=== PATIENT | male | born 1955 | race Caucasian/White ===

== ENCOUNTER 2020-02-15 15:11 | Emergency (ER) | payer SELFPAY ==
[2020-02-15] MEDS ORDERED: Clopidogrel 75 MG Tab ONE (15:30)
[2020-02-15] MEDS ORDERED: Aspirin 81 MG Tab.Chew ONE (15:30)
[2020-02-15] MEDS ORDERED: Heparin Sodium 5,000 Units/ML Vial ONE (15:30)
[2020-02-15] MEDS ORDERED: Nitroglycerin 0.4 MG Tab.SL ONE (15:30)
--- NOTE | 2020-02-15 15:43 | EDM.PDOC ---
ED HPI GENERAL MEDICAL PROBLEM - General Stated Complaint: STEMI Time Seen by Provider: 02/15/20 15:11 Source of Information: Reports: Patient History Limitations: Reports: No Limitations - History of Present Illness INITIAL COMMENTS - FREE TEXT/NARRATIVE: Pt. presents to ER with complaints of chest discomfort with radiation into L arm. 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 He states that he had some intermittent twinges of pain last evening as well. Denies any shortness of breath. Denies any nausea or vomiting. Pt. states that he "doesn't doctor". He sees a [facility] in [place] when he hodges there. He states that he knows that his cholesterol is elevated and he is not taking any medications for this. He is a non-smoker. He state that his father of CAD when he was 49. Onset: Today Onset Date: 02/15/20 Location: Reports: Chest, Generalized Associated Symptoms: Reports: Diaphoresis ED ROS GENERAL - Review of Systems Review Of Systems: See Below Constitutional: Reports: No Symptoms HEENT: Reports: No Symptoms Respiratory: Reports: No Symptoms Cardiovascular: Reports: Chest Pain Endocrine: Reports: No Symptoms GI/Abdominal: Reports: No Symptoms : Reports: No Symptoms Musculoskeletal: Reports: No Symptoms Skin: Reports: Diaphoresis Neurological: Reports: No Symptoms Psychiatric: Reports: No Symptoms Hematologic/Lymphatic: Reports: No Symptoms Immunologic: Reports: No Symptoms ED EXAM, GENERAL - Physical Exam Exam: See Below Exam Limited By: No Limitations General Appearance: Alert, WD/WN, No Apparent Distress Nose: Normal Inspection, No Blood Throat/Mouth: Normal Lips, Normal Voice, No Airway Compromise Head: Atraumatic, Normocephalic Neck: Normal Inspection, Supple, Non-Tender, Full Range of Motion Respiratory/Chest: No Respiratory Distress, Lungs Clear, Normal Breath Sounds, No Accessory Muscle Use, Chest Non-Tender Cardiovascular: Normal Peripheral Pulses, Regular Rate, Rhythm, No Edema, No Murmur Peripheral Pulses: 4+: Radial (L) GI/Abdominal: Soft, Non-Tender, No Mass (Male) Exam: Deferred Rectal (Males) Exam: Deferred Back Exam: Normal Inspection, Full Range of Motion Extremities: Normal Inspection, Normal Range of Motion, Non-Tender, Normal Capillary Refill Neurological: Alert, Oriented, CN II-XII Intact, Normal Cognition, Normal Gait, Normal Reflexes, No Motor/Sensory Deficits Psychiatric: Normal Affect, Normal Mood Skin Exam: Warm, Dry, Intact, Pallor Lymphatic: No Adenopathy EKG INTERPRETATION Rhythm: NSR [place]: Normal P-Wave: Present QRS: Normal ST-T: Normal QT: Normal EKG Interpretation Comments: STEMI noted in inferior leads Departure - Departure Time of Disposition: 15:45 Disposition: Home, Self-Care 01 Clinical Impression: ST elevation myocardial infarction (STEMI) of inferior wall, initial episode of care - Discharge Information Forms: Interfacility Transfer EMTALA - Problem List Review Problem List Initiated/Reviewed/Updated: Yes - Assessment/Plan Plan: Pt. was noted to have an inferior STEMI noted on the EKG. STEMI protocol was started and code was called. 2 IVs started. Pt. was given aspirin 324mg PO. Pt. was given plavix 600mg PO. She was given heparin 4000u bolus and started on heparin at 1000u/hr drip. Pt. was bradycardic at a rate in the 40s, so no beta kasia was given. He was given nitro 0.4mg SL with caused the pain to completely resolve. Contacted , customer support consultant at [facility] who accepts the patient in transfer. Pt. will be transferred via [facility] ground ambulance. Pt. signed consent and EMTALA form.
[2020-02-15 15:53] LABS: PTT,PARTIAL THROMBOPLSTIN TIME 27.2 SEC (25.6-32.8)
[2020-02-15 15:57] LABS: ANION GAP 13.9 mmol/L (10-20); CHLORIDE,CL 103 mmol/L (98-107); SODIUM,NA 139 mmol/L (136-145)
--- OUTSIDE RECORDS SUMMARY | 2020-02-20 14:33 | XMSREPORT ---
:1955 Author Organization [facility] s Address [address] [place] [address] Care Team Providers Name Role Phone Provider, Hosp Procedure Primary Care Provider Unavailable Reason for Visit Reason Comments Auth/Cert Status Reason Specialty Diagnoses / Procedures Referred By Rowena hubbard Referred To Contact Encounter Details Date Type Department Care Team Description 02/15/2020 - Hospital Encounter [facility] Arashvand, STEMI involving 02/17/2020 CENTER [facility] [place], right coronary [address] artery ([place]) [place] [address] [place] [phone] Allergies Not on Filedocumented as of this encounter (statuses as of 02/17/2020) Medications Medication Sig Dispensed Refills Start Date End Date Status aspirin 81 mg Take 1 tablet 100 tablet 4 02/18/2020 Active chewable (81 mg) by tabletIndications: mouth 1 time Stented coronary per day artery, STEMI involving right coronary artery (HCC) nitroglycerin Dissolve 1 25 tablet 1 02/17/2020 Acti ve (NITROSTAT) 0.4 mg tablet (0.4 1 sublingual mg) under the tabletIndications: tongue Every Stented coronary 5 minutes as artery, STEMI needed for involving right chest pain coronary artery May repeat (HCC) every 5 minutes for a total of 3 doses. atorvaSTATin Take 1 tablet 90 tablet 4 02/18/2020 Ac tive (LIPITOR) 40 mg (40 mg) by 1 tabletIndications: mouth 1 time Stented coronary per day artery, STEMI involving right coronary artery (HCC) lisinopril Take 1 tablet 90 tablet 4 02/18/2020 Acti ve (PRINIVIL, (2.5 mg) by 1 ZESTRIL) 2.5 MG mouth 1 time tabletIndications: per day Stented coronary artery, STEMI involving right coronary artery (HCC) thyroid (ARMOUR Take by mouth 0 02/17/2020 Active THYROID) 60 mg 1 time per tablet (1 grain) day ARMOUR THYROID PO Take by mouth 0 02/16/20 2 Discontinued 1 time per 0 (Data ent ry day error) thyroid 60 mg Take 60 mg by 0 Di scontinued tablet (1 grain) mouth 1 time 0 (carpentry specialist a day in the error) morning clopidogrel Take 8 8 tablet 0 02/17/2020 Discont inued (PLAVIX) 75 mg tablets (600 0 (D uplicate) tabletIndications: mg) by mouth Stented coronary 1 time for 1 artery, STEMI dose involving right coronary artery (HCC) clopidogrel Take 1 tablet 90 tablet 3 02/18/2020 Dis continued (PLAVIX) 75 mg (75 mg) by 0 (Dup licate) tabletIndications: mouth 1 time Stented coronary per day artery, STEMI involving right coronary artery (HCC) documented as of this encounter (statuses as of 02/17/2020) Active Problems Problem Noted Date STEMI involving right coronary artery 02/15/2020 documented as of this encounter (statuses as of 02/17/2020) Social History Tobacco Use Types Packs/Day Years Used Date Never Assessed Sex Assigned at Date Recorded Not on file Job Start Date Occupation Industry Not on file Not on file Not on file Travel History Travel Start Travel End No recent travel history available. documented as of this encounter Last Filed Vital Signs Vital Sign Reading Time Taken Comments Blood Pressure 111/62 02/17/2020 10:47 AM CDT Pulse 52 02/17/2020 10:47 AM CDT Temperature 36.8 C (98.3 F) 02/17/2020 10:47 AM CDT Respiratory Rate 16 02/17/2020 10:47 AM CDT Oxygen Saturation 97% 02/17/2020 10:47 AM CDT Inhaled Oxygen Concentration - - Weight 96.4 kg (212 lb 8.4 oz) 02/15/2020 5:00 PM CDT Height 182.9 cm (6') 02/15/2020 5:00 PM CDT Body Mass Index 28.82 02/15/2020 5:00 PM CDT documented in this encounter Functional Status Functional Status Response Date of Assessment Is the person deaf or does he/she have serious difficulty No 02/15/2020 hearing? Is this person blind or does he/she have difficulty No 02/15/2020 seeing even when wearing glasses? Do you have difficulty with walking, balance, climbing No 02/16/2020 stairs, or had a fall in the last 3 months? Does the patient have difficulty dressing or bathing? No 02/15/2020 Because of a physical, mental, or emotional condition; No 02/15/2020 does this person have difficulty doing errands alone such as visiting a doctor's office or shopping? Cognitive Status Response Date of Assessment Because of a physical, mental, or emotional condition; No 02/15/2020 does this person have serious difficulty concentrating, remembering, or making decisions? documented as of this encounter Discharge Summaries Nani Dodson PA-C - 02/17/2020 11:20 AM CDT Cardiology Discharge Summary Discharging Physician: Dr. Roque Bernstein Admit Date: 02/15/2020 Discharge Date: 02/17/2020 Primary Care Physician: [facility] Procedure Provider Discharge Diagnoses Patient Active Problem List Diagnosis STEMI involving right coronary artery (HCC) Hospital Course Gigi Henderson is a 64yr old male who was admitted for STEMI. He received stents to his PDA, mid LAD and proximal LAD, he denies any recurrent symptoms since then. Echocardiogram shows a preserved EF of 65%. He was started on a low dose beta kasia but unfortunately was unable to tolerate due to bradycardia, his HR only reached 66 with activity and it has been held every dose. He will be discharged on ASA, clopidogrel (PLAVIX), lisinopril (PRINIVIL, ZESTRIL) and atorvastatin calcium (LIPITOR) which are all new for him. He has accident insurance so ticagrelor (BRILINTA) would likely be very expensive, this was changed to clopidogrel (PLAVIX). He should take aloading dose tonight of 600 mg followed by 75 mg/daily starting tomorrow. We will follow up with himas an outpatient in 4-6 weeks. Discussed the importance of continuing DAP; he should continue ASA indefinitely and clopidogrel (PLAVIX) for at least 1 year. Missing of doses could lead to possible stent closure. Patient is agreeablewith continuing medications. We also discussed the importance of routine exercise, heart healthy diet, maintaining adequate BP/blood sugars and limiting/avoiding substances such as alcohol and tobacco. Patient is stable for discharge. Preliminary Discharge Medications This list of medications is preliminary and tentative. Please see the After Visit Summary for the final and accurate medication list. Discharge Medication List START taking these medications START: aspirin 81 mg chewable tablet Dose: 81 mg Take 1 tablet (81 mg) by mouth 1 time per day Start taking on: February 18, 2020 START: atorvaSTATin 40 mg tablet Commonly known as: LIPITOR Dose: 40 mg Take 1 tablet (40 mg) by mouth 1 time per day Start taking on: February 18, 2020 START: * clopidogrel 300 mg tablet Commonly known as: PLAVIX Dose: 600 mg Take 2 tablets (600 mg) by mouth 1 time for 1 dose START: * clopidogrel 75 mg tablet Commonly known as: PLAVIX Dose: 75 mg Take 1 tablet (75 mg) by mouth 1 time per day Start taking on: February 18, 2020 START: lisinopril 2.5 MG tablet Commonly known as: PRINIVIL, ZESTRIL Dose: 2.5 mg Take 1 tablet (2.5 mg) by mouth 1 time per day Start taking on: February 18, 2020 START: nitroglycerin 0.4 mg sublingual tablet Commonly known as: NITROSTAT Dose: 0.4 mg Dissolve 1 tablet (0.4 mg) under the tongue Every 5 minutes as needed for chest pain May repeat every 5 minutes for a total of 3 doses. * This list has 2 medication(s) that are the same as other medications prescribed for you. Read thedirections carefully, and ask your doctor or other care provider to review them with you. CONTINUE taking these medications which have NOT CHANGED CONTINUE: thyroid 60 mg tablet (1 grain) Dose: 60 mg Take 60 mg by mouth 1 time a day in the morning You might also be taking other medications not listed above. If you have questions about any of your other medications, talk to the person who prescribed them or your Primary Care Provider. Where to Get Your Medications These medications were sent to [facility] [address] [place] [id number] Hours: M-F 8am-9pm, Sat-Sun 9am-9pm aspirin 81 mg chewable tablet atorvaSTATin 40 mg tablet clopidogrel 300 mg tablet clopidogrel 75 mg tablet lisinopril 2.5 MG tablet nitroglycerin 0.4 mg sublingual tablet Procedures Performed and Findings 02/15/2020: angiogram, Right posterior descending artery: A successful Drug Eluting Stent was deployed using a RESOLUTE SHRADDHA RX2.79E17IA. Mid left anterior descending: A successful Drug Eluting Stent was deployed using a RESOLUTE SHRADDHA RX3.0X30MM. Proximal left anterior descending: A Drug Eluting Stent was deployed using a RESOLUTE SHRADDHA RX3.0X30MM. Consultations Obtained None Discharge Disposition ADULT Discharge Planning: Home (1, 2) Activity on Discharge No lifting >10 pounds for the next 7 days Discharge Instructions Follow-Up Scheduled PCP In 1-2 weeks Cardiology 4-6 weeks Cardiac rehab ordered documented in this encounter Discharge Instructions Georgia Gilliam RN - 02/17/2020 Discharge Instructions for Cardiac Catheterization Cardiac catheterizationis an invasiveprocedureto evaluate for certain heart problems involvingthe hearts chambers, valves, and blood vessels. A thin, flexible tube (catheter) is put in a bloodvessel in your groin or arm. Once the catheter is advanced into the heart measurements can be taken to assess blood flow, pressure, and oxygen. The healthcare provider can inject contrast fluidinto your blood, which then flows to your heart.X-rays picturescan then be taken of your heart. Often "coronary angiography" is performed as part of a cardiac catheterization which looks for blocked areas in the arteries that send blood to the heart. If a significant blockage is found your doctormay attempt to open up the artery which often involves placing a stent. Your provider will review the results of your procedure with you. Be sure to ask any questions you have before you leave. This sheet will help you take care of yourself at home. Home care Don't drive or make any important decisions for at least 24 hours after getting any type of sedation or anesthesia. Arrange to have a responsible adult drive you home after your procedure. Only do light and easy activities forthe next 2 to 3days. Ask for help with chores and errands while you recover. Have someone drive you to your appointments. Don't lift anything heavyuntil your healthcare team tells you when it's safe to lift again. Ask your healthcare team when you can expect to return to work. Unless your job involves lifting,you may be able to return to your normal activities within a couple of days. Take your medicines as directed. Don't skip doses. Drink 6 to 8glasses of water a day. This is to help flush the contrast dye out of your body. Call your healthcare team if your urine has any change in color. Take your temperature each day for 7 days. If you feel cold and clammy or start sweating, take your temperature right away and call your healthcare team. Check your incisions every day for signs of infection. These include redness, swelling, and drainage. It's normal to have a small bruise or bump where the catheter was inserted. A bruise that's getting larger is not normal and should be reported to your healthcare team. If you see blood forming in the incision, call your healthcare team. Go to the emergency department if you have uncontrolled bleeding from the artery site. This is especially true if you take medicines that make it hard for your blood to clot. Examples are aspirin, clopidogrel, and warfarin. Eat a healthy diet. Make sure it's low in fat, salt, and cholesterol. Ask your healthcare team for diet information. Stop smoking. Enroll in a stop-smoking program or ask your healthcare team for help. Stop-smokingprograms can be life saving. Exercise as your healthcare team tells you to. Your healthcare teammay recommend you start a cardiac rehabilitation program. Cardiac rehab is an exercise program in which trained healthcare staff watch your progress and stress on your heart while you exercise. Ask your team how to enroll. Don't swim or take baths until your healthcare team says its OK. You can shower the day after the procedure. Keep the site clean and dry. This keeps the incision from getting wet and infected until the skin and artery can heal. Be sure to follow all after-care instructions. Follow-up care Make a follow-up appointment as advised by our staff. It's common to have a follow-up appointment2 to 4 weeks after an angioplasty or coronary stent procedure. Make a yearly appointment, too. This isto make sure you are still doing well and not having anynew symptoms. Don't wait for a follow-up appointment if your medicines aren't working or you are having heart-related symptoms. When to seek medical care Call your healthcare provider right away if you have any of the following: Chest pain Constant or increasing pain or numbness in your leg Fever of 100.4 F( 38.0C) or higher, or as directed by your healthcare provider Symptoms of infection. These include redness, swelling, drainage, or warmth at the incision site. Shortness of breath A leg that feels cold or appears blue Bleeding, bruising, or a lot ofswelling where the catheter was inserted Blood in your urine Black or tarry stools Any unusual bleeding [employer] last reviewed this educational content on 04/05/201919997833-7746 [employer]. [address] [place] [address]. All rights reserved. This information is not intended as a substitute for professional medical care. Always follow your healthcare professional's instructions. AttachmentsThe following attachments cannot be sent through Care Everywhere. Eating Heart-Healthy Foods (Bengali)documented in this encounter Medications at Time of Discharge Medication Sig Dispensed Refills Start Date End Date aspirin 81 mg chewable Take 1 tablet (81 100 tablet 4 2019 tabletIndications: mg) by mouth 1 time Stented coronary artery, per day STEMI involving right coronary artery (HCC) nitroglycerin Dissolve 1 tablet 25 tablet 1 02/17/202002/03 (NITROSTAT) 0.4 mg (0.4 mg) under the sublingual tongue Every 5 tabletIndications: minutes as needed Stented coronary artery, for chest pain May STEMI involving right repeat every 5 coronary artery (HCC) minutes for a total of 3 doses. atorvaSTATin (LIPITOR) Take 1 tablet (40 90 tablet 4 201902/22/2021 40 mg tabletIndications: mg) by mouth 1 time Stented coronary artery, per day STEMI involving right coronary artery (HCC) lisinopril (PRINIVIL, Take 1 tablet (2.5 90 tablet 4 201902/22/2021 ZESTRIL) 2.5 MG mg) by mouth 1 time tabletIndications: per day Stented coronary artery, STEMI involving right coronary artery (HCC) clopidogrel (PLAVIX) 75 Take 8 tablets (600 98 tablet 3 mg tablet mg) by mouth 1 time for 1 dose, Then take one tablet by mouth daily thereafter thyroid (ARMOUR THYROID) Take by mouth 1 time 0 0 02/17/2020 60 mg tablet (1 grain) per day documented as of this encounter Progress Notes Mckenna Arana, PHARM D - 02/16/2020 12:54 PM CDT02/16/2020 12:54 PM -- Patient was seen by the pharmacy med reconciliation team and HOME MEDICATIONS h ave been reconciled and updated to match the patient's home usage. Mckenna Arana, PHARM D documented in this encounter Plan of Treatment Date Type Specialty Care Team Description 02/27/2020 Office Visit Family [facility] Griselda Jaime , [employer] [address] [place] [address] [phone] Name Type Priority Associated Diagnoses Date/Ti me EKG [facility] Routine 02/17/2020 8:5 1 AM CDT Name Type Priority Associated Diagnoses Order S chedule EKG [facility] Routine daily (0600) fo r 3 Days starting 02/16/2020 until 0, 2 completed documented as of this encounter Procedures Procedure Name Priority Date/Time Associated Comments Diagnosis TROPONIN I Routine 02/17/2020 7:10 Results for this AM CDT procedure are i n the results section. BASIC METABOLIC PANEL Routine 02/17/2020 7:10 Re sults for this AM CDT procedure are i n the results section. ECHO ADULT COMPLETE Routine 02/16/2020 10:42 Resu lts for this AM CDT procedure are i n the results section. LAB ONLY-COMPLETE Routine 02/16/2020 7:28 Result s for this BLOOD COUNT WITH AM CDT procedure a re in DIFFERENTIAL the results section. LIPID PANEL Routine 02/16/2020 7:28 Results for this AM CDT procedure are i n the results section. TROPONIN I Routine 02/16/2020 7:28 Results for this AM CDT procedure are i n the results section. FERRITIN Routine 02/16/2020 7:28 Results for this AM CDT procedure are i n the results section. HEPATIC FUNCTION Routine 02/16/2020 7:28 Results for this PANEL AM CDT procedure are i n the results section. BASIC METABOLIC PANEL Routine 02/16/2020 7:28 Re sults for this AM CDT procedure are i n the results section. LAB ONLY-COMPLETE Routine 02/16/2020 7:28 Result s for this BLOOD COUNT WITH AM CDT procedure a re in DIFFERENTIAL the results section. EKG Routine 02/16/2020 7:06 Results for this AM CDT procedure are i n the results section. COMPLETE BLOOD COUNT JIM 02/15/2020 6:09 Res ults for this WITHOUT DIFFERENTIAL PM CDT procedu re are in the results section. TROPONIN I JIM 02/15/2020 6:09 Results for this PM CDT procedure are i n the results section. BASIC METABOLIC PANEL JIM 02/15/2020 6:09 Re sults for this PM CDT procedure are i n the results section. ACTIVATED CLOTTING Routine 02/15/2020 5:10 Resul ts for this TIME POCT PM CDT procedure are i n the results section. CARDIAC CATH POSSIBLE Routine 02/15/2020 5:01 Re sults for this ANGIOPLASTY STENT PM CDT procedure are in [employer] the results section. documented in this encounter Results TROPONIN I (02/17/2020 7:10 AM CDT) Pathologist [facility] Troponin I 1.166 (H) 0.000 - 0.028 ng/mL [address] Specimen Blood Performing Organization Address City/State/Zipcode Phone Number [address] [place] [address], [place] [address] BASIC METABOLIC PANEL WITH GFR (02/17/2020 7:10 AM CDT) Pathologist [facility] Glucose 96 70 - 100 mg/dL [place] [address] [facility] BUN 12 6 - 22 mg/dL [address] Creatinine 0.90 0.80 - 1.[address] mg/dL BUN/Creatinine Ratio 13.3 10.0 - 25.[address] Sodium 137 135 - 145 meq/L [address] Potassium 4.1 3.5 - 5.3 meq/L [address] Chloride 104 99 - 110 meq/L [address] CO2 24 20 - 29 meq/L [address] Anion Gap with K 13 6 - 20 meq/L [address] Calcium 9.0 8.5 - 10.5 mg/dL [address] Age [address] eGFR Non- 85 >=[address] Danish mL/min/1.73m2 eGFR >90 >=[address] mL/min/1.73m2 Specimen Blood Performing Organization Address City/State/Zipcode Phone Number [address] [place] [address] ECHO ADULT COMPLETE (02/16/2020 10:42 AM CDT) Specimen Narrative Performed At This result has an attachment that is no t available. [facility] Patient: GIGI HENDERSON MR#: [id number] Exam Date: 02/16/2020 Transthoracic Echocardiogram [facility] [address] [place] [address] BP: 92/57 mmHg HR: 45 bpm : 1955 Exam Location: Bedside Height: 72.00 "(182.9 cm) Age: 64 year(s) Patient Room: [facility] Weight: 212 lbs.(96.16 kg) Gender: Male Patient Status: Inpatient BSA: 2.18 m2 [employer] Glazier: CJ GONZALEZ RDCS, R [place] Reading Physician: Olga Lidia KIRBY Ordering Physician: JASON GARCIA DO Procedure Indication(s): STEMI Examination: TTE Complete 2D(m-mode), Complete Spectral Doppler, Color Doppler Exam Comments The cardiac rhythm is sinus bradycardia Clinical History Most Recent PCI Date: 02/15/2020 Comparison Study Comparison Study: No previous echo was available for c omparison Findings Left Ventricle: Normal left ventricular size. Normal lef t ventricular wall thickness. Normal left ventricular systolic function. The ejection fraction is visually estimated to be 65 %. No evidence of high left ventricular filling pressure. Left Atrium: Normal left atrial size. Aortic Valve: The aortic valve is tricuspid. Mild aort ic cuspal thickening. Aortic sclerosis is present. Normal aortic cuspal mobility. No significant aortic regurgitation. No aortic stenosis. Aorta: The sinus of valsalva is normal in size. The ascending aorta is normal in size measuring 31.0 mm. Mitral Valve: Mild mitral leaflet thickening. Trivial mitral regurgitation. No mitral stenosis. IAS: No gross evidence of shunt flow seen; ho wever the possibility of a PFO cannot be completely ruled out. Right Ventricle: Normal right ventricular size. Normal ri ght ventricular systolic function. Normal right ventricular wall thickness. Pulmonary artery systolic pressure is measured at 23 mmHg. Pulmonary Artery: No significant pulmonary artery hypertension. Pulmonary Vein: Normal pulmonary venous flow. Right Atrium: Normal right atrial size. Tricuspid Valve: Normal tricuspid valve structure. Trivia l tricuspid regurgitation. No significant tricuspid stenosis. Pulmonic Valve: Normal pulmonary valve structure. No sig nificant pulmonary regurgitation. No pulmonary stenosis. IVC: Normal IVC size with normal respirophasic changes. IVC not well visualized. Pericardium: No significant pericardial effusion. The re is pericardial fat. No pleural effusion. Measurements Left Ventricle Aortic Valve Label Value Normal Value Label Value Normal Value LVDd, 2D 48.5 mm LVOT Vmax 99 cm/s LVDs, 2D 31.3 mm AV Vmax 143 cm/s IVSd, 2D 9 mm LVOTd 22 mm LVPWd, 2D 8.2 mm LVOT VTI 25.2 cm FS, 2D 35.46 % LVOT PGmax 4 mmHg LVEDV, 2D 110 ml AV Vmean 99 cm/s LVESV, 2D 39 ml AV VTI 29.7 cm LVEDVI, 2D 50.5 ml/m2 AV PGmax 8 mmHg LVESVI, 2D 17.9 ml/m2 AV PGmean 4 mmHg Stroke Index 44.04 [place] (Vmax) 2.6 cm-sq ml/m-sq AV Vmax, Caliper 143 cm/s Cardiac Output 4.32 L/min [place] (VTI) 3.2 cm-sq Cardiac Index 1.98 Obstruction Index 0.85 L/min/m-sq (V TI) Left Atrium Obstructive Index 0.69 Label Value Normal Value (Vmax) LADs Long. 59 mm Mitral Valve LADs, MM 43 mm Label Value Normal Value LA/AO Ratio, MM 1.26 MV E Vma x 49 cm/s Aorta MV A Vmax 43 cm/s Label Value Normal Value MV E/A 1.14 Ao Asc 31 mm MV E/E' lateral 3.9 Ao Sinus, MM 34 mm MV E/E' septal 5.5 Heart Rate MV Dec Time 183 ms Label Value Normal Value MV E' septal 9.1 cm/s Heart Rate 45 bpm MV E' lateral 12.9 cm/s Tricuspid Valve Label Value Carrie l Value RA Pressure 3 mmHg TR Pmax 20 mmHg RVSP 23 mmHg Pulmonic Valve Label Value Carrie l Value PV Vmax 141 cm/s PV PGmax 8 mmHg Electronically signed by JASON GARCIA DO on 2019 at 02:48 PM Procedure Note [employer] Results No Pull Forward - 02/16/2020 2:50 PM CDT Patient: GIGI HENDERSON MR#: [id number] Exam Date: 02/16/2020 Transthoracic Echocardiogram [facility] [address] [place] [address] BP: 92/57 mmHg HR: 45 bpm : 1955 Exa m Location: Bedside Height: 72.00 "(182.9 cm) Age: 64 year(s) Pat ient Room: [facility] Weight: 212 lbs.(96.16 kg) Gender: Male Pat ient Status: Inpatient BSA: 2.18 m2 [employer] Glazier: CJ GONZALEZ RDCS, RVT Reading Physician: JASON BLEDSOE DO Ordering Physician: JASON BLEDSOE DO Procedure Indication(s): STEMI Examination: TTE Com plete 2D(m-mode), Complete Spectral Doppler, Color Doppler Exam Comments The car diac rhythm is sinus bradycardia Clinical History Most Recent PCI Date: 02/15/2020 Comparison Study Comparison Study: No previous echo was a vailable for comparison Findings Left Ventricle: Normal left ventricular size. Normal lef t ventricular wall thickness. Normal left ventricular systolic function. The ejection fraction is visually estimated to be 65 %. No evidence of high left ventricular filling pressure. Left Atrium: Normal left atrial size. Aortic Valve: The aortic valve is tricuspid. Mild aort ic cuspal thickening. Aortic sclerosis is present. Normal aortic cuspal mobility. No significant aortic regurgitation. No aor tic stenosis. Aorta: The sinus of valsalva is normal in size. The ascending aorta is normal in size measuring 31.0 mm. Mitral Valve: Mild mitral leaflet thickening. Trivial mitral regurgitation. No mitral stenosis. IAS: No gross evidence of shunt flow seen; ho wever the possibility of a PFO cannot be completely ruled out. Right Ventricle: Normal right ventricular size. Normal ri ght ventricular systolic function. Normal right ventricular wall thickness. Pulmonary artery systolic pressure is measured at 23 mmHg. Pulmonary Artery: No significant pulmonary artery hyperten carol. Pulmonary Vein: Normal pulmonary venous flow. Right Atrium: Normal right atrial size. Tricuspid Valve: Normal tricuspid valve structure. Trivia l tricuspid regurgitation. No significant tricuspid stenosis. Pulmonic Valve: Normal pulmonary valve structure. No sig nificant pulmonary regurgitation. No pulmonary stenosis. IVC: Normal IVC size with normal respirophasi c changes. IVC not well visualized. Pericardium: No significant pericardial effusion. The re is pericardial fat. No pleural effusion. Measurements Left Ventricle Aortic Valve Label Value Norm al Value Label Value Normal Value LVDd, 2D 48.5 mm LVOT Vmax 99 cm/s LVDs, 2D 31.3 mm AV Vmax 143 cm/s IVSd, 2D 9 mm LVOTd 22 mm LVPWd, 2D 8.2 mm LVOT VTI 25.2 cm FS, 2D 35.46 % LVOT PGmax 4 mmHg LVEDV, 2D 110 ml AV Vmean 99 cm/s LVESV, 2D 39 ml AV VTI 29.7 cm LVEDVI, 2D 50.5 ml/m2 AV PGmax 8 mmHg LVESVI, 2D 17.9 ml/m2 AV PGmean 4 mmHg Stroke Index 44.04 [place] (Vmax) 2.6 cm-sq ml/m-sq AV Vmax, Caliper 143 cm/s Cardiac Output 4.32 L/min [place] (VTI) 3.2 cm-sq Cardiac Index 1.98 Obstruction Index 0.85 L/min/m-sq (V TI) Left Atrium Obstructive Index 0.69 Label Value Norm al Value (Vmax) LADs Long. 59 mm Mitral Valve LADs, MM 43 mm Label Value Normal Value LA/AO Ratio, MM 1.26 MV E Vmax 49 cm/s Aorta MV A Vmax 43 cm/s Label Value Norm al Value MV E/A 1.14 Ao Asc 31 mm MV E/E' lateral 3.9 Ao Sinus, MM 34 mm MV E/E' septal 5.5 Heart Rate MV Dec Time 183 ms Label Value Norm al Value MV E' septal 9.1 cm/s Heart Rate 45 bpm MV E' lateral 12.9 cm/s Tricuspid Valve Label Value Norm al Value RA Pressure 3 mmHg TR Pmax 20 mmHg RVSP 23 mmHg Pulmonic Valve Label Value Norm al Value PV Vmax 141 cm/s PV PGmax 8 mmHg Performing Organization Address City/[facility]/Zipcode Phone Number [facility] F, [place] FERRITIN (02/16/2020 7:28 AM CDT) Pathologist [facility] Ferritin 1,217 (H) 21 - 275 ng/mL [facility] Specimen Blood Performing Organization Address City/[facility]/Zipcode Phone Number [facility] [address], [place] [phone] TROPONIN I (02/16/2020 7:28 AM CDT) Pathologist [facility] Troponin I 2.311 (H) 0.000 - 0.028 ng/mL [address] Specimen Blood Performing Organization Address [facility] Phone Number [address] [place] [phone] LAB ONLY-COMPLETE BLOOD COUNT WITH DIFFERENTIAL (02/16/2020 7:28 AM CDT) Pathologist Sig nature WBC 7.0 4.0 - 11.0 K/uL [address] RBC 4.88 4.40 - 5.80 M/uL [address] Hemoglobin 14.3 13.5 - 17.5 g/dL [address] Hematocrit 42.7 40.0 - 50.0 % [address] MCV 87.5 80.0 - 98.[address] MCH 29.3 25.5 - 34.[address] MCHC 33.5 31.5 - 36.5 g/dL [address] RDW-CV 13.0 11.5 - 15.5 % [address] RDW-SD 41.4 35.5 - 50.[address] Platelet Count 151 140 - 400 K/uL [address] MPV 10.3 8.5 - 12.[address] Seg Neut Absolute 4.7 1.8 - 8.0 K/uL [place] [address] [facility] Lymphocytes Absolute 1.6 0.8 - 4.1 K/uL [place] [address] [facility] Monocytes Absolute 0.5 0.0 - 1.0 K/uL [place] [address] [facility] Eosinophils Absolute 0.1 0.0 - 0.7 K/uL [place] [address] [facility] Basophil Absolute 0.0 0.0 - 0.2 K/uL [address] Immature Granulocyte 0.02 0.00 - 0.06 K/uL [place] [address] [facility] MARGARITA Absolute Neutrophils Abs. (Segs 4,700 /uL [place] [address] [facility] and Bands) Neutrophils Percent 67.5 % [address] Lymphocytes Percent 23.0 % [address] Monocytes Percent 7.7 % [address] Immature Granulocyte 0.3 % [address] Percent Eosinophils Percent 1.1 % [address] Basophil Percent 0.4 % [address] Nucleated RBC 0 /[address] Specimen Blood Performing Organization Address [facility] Phone Number [address] [place] [phone] LIPID PANEL (02/16/2020 7:28 AM CDT) Pathologist [facility] Cholesterol 159 100 - 200 mg/dL [facility] Triglyceride 219 (H) 50 - 150 mg/dL [facility] HDL 31 (L) 40 - 80 mg/dL [facility] LDL 84 0 - 129 mg/dL [facility] Specimen Blood Performing Organization Address [facility] Phone Number [facility] [address] [place] [address] HEPATIC FUNCTION PANEL (02/16/2020 7:28 AM CDT) Pathologist [facility] nature Alkaline Phosphatase 40 30 - 150 U/L [address] AST - SGOT 37 (H) 0 - 35 U/L [address] ALT - SGPT 53 0 - 55 U/L [address] Bilirubin Total 1.6 (H) 0.2 - 1.2 mg/dL [address] Bilirubin Indirect 1.1 (H) 0.0 - 0.8 mg/dL [address] Bilirubin Direct 0.5 (H) 0.0 - 0.4 mg/dL [address] Albumin 4.0 3.5 - 5.0 g/dL [address] Protein Total 6.2 6.0 - 8.2 g/dL [address] Specimen Blood Performing Organization Address [facility] Phone Number [place] [address] [facility] [address] [place] [phone] BASIC METABOLIC PANEL (02/16/2020 7:28 AM CDT) [facility] Glucose 95 70 - 100 mg/dL [address] BUN 13 6 - 22 mg/dL [address] Creatinine 0.90 0.80 - 1.[address] mg/dL BUN/Creatinine Ratio 14.4 10.0 - 25.[address] Sodium 137 135 - 145 meq/L [address] Potassium 4.2 3.5 - 5.3 meq/L [address] Chloride 107 99 - 110 meq/L [address] CO2 22 20 - 29 meq/L [address] Anion Gap with K 12 6 - 20 meq/L [address] Calcium 8.8 8.5 - 10.5 mg/dL [address] Age [address] eGFR Non- 85 >=[address] Danish mL/min/1.73m2 eGFR >90 >=[address] mL/min/1.73m2 Specimen Blood Performing Organization Address [facility] Phone Number [address] [place] [phone] EKG (02/16/2020 7:06 AM CDT) Pathologist Sig nature EKG WAVEFORM TRACEKannaLife SciencesSTER RAHUL HEALY Sinus bradycardia Otherwise normal ECG When compared with ECG of 15-JUL-1989 11:47, T wave inversion no longer evident in Inferior leads Ventricular Rate: 45 BPM Atrial Rate: 45 BPM P-R Interval: 158 ms QRS Duration: 98 ms Q-T Interval: 432 ms QTc Calculation(Bazett): 373 ms Calculated P [place]: 32 degrees Calculated R [place]: 31 degrees Calculated T [place]: 34 degrees Specimen Narrative Performed At This result has an attachment that is no t available. Performing Organization Address [facility] Phone Number TRACEKannaLife SciencesSTER [facility] BASIC METABOLIC PANEL (02/15/2020 6:09 PM CDT) Pathologist [facility] Glucose 90 70 - 100 mg/dL [address] BUN 18 6 - 22 mg/dL [address] Creatinine 1.07 0.80 - 1.[address] mg/dL BUN/Creatinine Ratio 16.8 10.0 - 25.[address] Sodium 140 135 - 145 meq/L [address] Potassium 4.1 3.5 - 5.3 meq/L [address] Chloride 107 99 - 110 meq/L [address] CO2 19 (L) 20 - 29 meq/L [address] Anion Gap with K 18 6 - 20 meq/L [address] Calcium 9.2 8.5 - 10.5 mg/dL [address] Age [address] eGFR Non- 69 >=[address] Danish mL/min/1.73m2 eGFR 84 >=[address] mL/min/1.73m2 Specimen Blood Performing Organization Address City/State/Zipcode Phone Number [address] [place] [phone] COMPLETE BLOOD COUNT WITHOUT DIFFERENTIAL (02/15/2020 6:09 PM CDT) Pathologist [facility] WBC 9.3 4.0 - 11.0 K/uL [address] RBC 4.97 4.40 - 5.80 M/uL [address] Hemoglobin 14.8 13.5 - 17.5 g/dL [address] Hematocrit 44.1 40.0 - 50.0 % [address] MCV 88.7 80.0 - 98.[address] MCH 29.8 25.5 - 34.[address] MCHC 33.6 31.5 - 36.5 g/dL [address] RDW-CV 13.0 11.5 - 15.5 % [address] RDW-SD 42.5 35.5 - 50.[address] Platelet Count 155 140 - 400 K/uL [address] MPV 10.7 8.5 - 12.0 fL [facility] Specimen Blood Performing Organization Address [facility] Phone Number [place] [address] [facility] [address], [place] [address] TROPONIN I (02/15/2020 6:09 PM CDT) Pathologist Sig nature Troponin I 0.498 (H) 0.000 - 0.028 ng/mL [place] [address] [facility] Specimen Blood Performing Organization Address [facility] Phone Number [place] [address] [facility] [address] [place] [address] ACTIVATED CLOTTING TIME POCT (02/15/2020 5:10 PM CDT) Pathologist Sig nature Activated Clotting 246 (H) 100 - 150 Secs [facility] POINT OF CARE TESTING Specimen Blood Narrative Performed At DEVICE: [id number] [facility] POINT OF CARE TESTING Performing Organization Address [facility] Phone Number [facility] POINT OF [address] [address] CARE TESTING Cardiac Cath Possible Angioplasty Stent Rib Bender - Left; With grafts? Unknown (02/15/2020 5:01 PM CDT) Specimen Narrative Performed At This result has an attachment that is no t available. [facility] Patient: GIGI HENDERSON [facility] Exam Date: 02/15/[address] Exam Time: 05:01 PM-05:15 [place] [address] Department of Interventional Cardiology Diagnostic Left Heart Catheterization Report, Cardiac Interventional Report : 1955 Fluoro Time: 7.4 min. Patient Status: Inpatient Age: 64 year(s) Cath Status: Patient Room: [facility] Gender: Male Diagnostic Rural Electrification Engineer: Olga Lidia KIRBY Groundwater Consultant: JASON GARCIA DO Indication: Angina/CA: myocardial infarction with ST elevation (STEMI). Interventional Conclusions: Interventional Summary Right posterior descending artery: A suc cessful Drug Eluting Stent was deployed using a RESOLUTE SHRADDHA RX2.69B52ZM. Mid left anterior descendin g: A successful Drug Eluting Stent was deployed using a RESOLUTE SHRADDHA RX3.0X30MM. Proximal left anterior descending: A Drug Eluting Stent was deployed using a RESOLUTE SHRADDHA RX3.0X30MM. Procedures Performed: Medication/Infusion/Drip. Art Access - R radial artery. Left Heart Cath With Ventriculogram. Selective Lt Coronary Angiography. Selective Rt Coronary Angio graphy. Drug Eluting Stent Placement. Activated Clotting Time. Additional Drug Eluting Stent Placement. Radial Artery C ompression Device. Fluoro 0.1-60 Minutes. Diagnostic Findings: Coronary Angiography The coronary circulation is right dominant. Left Main Left main artery: The segment is large. Angiography sh ows no disease. Left Anterior Descending Left anterior descending artery: The seg ment is large. Proximal left anterior descending: There is a 70 % stenosis. Mid left anterior descending: There is a 90 % gricelda nosis. First diagonal: The segment is large. Angiography shows no disease. Circumflex Circumflex artery: The segment is large. Angiography shows mild atherosclerosis. First obtuse marginal: The segment is large. Angiography shows mild atherosclerosis. Right Coronary Right coronary artery: The segment is la rge. Angiography shows mild atherosclerosis. Proximal right coronary artery: There is a 30 % stenosis. Right posterio r descending artery: The segment is large. There is a 90 % stenosis. Left Heart Cath Left ventricular function was assessed. Ejection fraction was calculated by a hand injection LV Gram with a value of 60%. Valves Aortic Valve: There is no aortic valve stenosis. Mitral Valve: The mitral valve exhibits no regurgitati on. Interventional Findings: PCI Procedure Data: The syntax score is intermediate. Interventional Details Right posterior descending artery: The i nitial stenosis was 90 %. This was an ACC/AHA Non-High/Non C lesion for intervention. Guidewire crossing was successful. A successful Drug Eluting Stent was depl oyed using a CATH GUIDE 5FR LAUNCHER [id number] during setup, a LUGE 0.014 182CM MODERATE SUPPORT during setup, and a RESOLUTE SHRADDHA RX2.30K29PR During Procedure. The total number of attempt(s) was 1. Th e maximum inflation pressure was 14(britt). There was ADILIA Flow 3 before the procedu re and ADILIA Flow 3 following the procedure. Mid left anterior descending: The initia l stenosis was 90 %. This was an ACC/AHA Non-High/Non C lesion for intervention. Guidewire crossing was successful. A successful Drug Eluting Stent was depl oyed using a CATH GUIDE 5FR LAUNCHER [id number] during setup, a LUGE 0.014 182CM MODERATE SUPPORT during setup, and a RESOLUTE SHRADDHA RX3.0X30MM During Procedure. The total number of attempt(s) was 1. Th e maximum inflation pressure was 14(britt). Following intervention there is a 0 % re sidual stenosis. There was ADILIA Flow 3 before the procedure and ADILIA Flow 3 following the procedure. Proximal left anterior descending: The i nitial stenosis was 70 %. This was an ACC/AHA High/C lesion for intervention. Guidewire crossing was successful. A Drug Eluting Stent was deployed using a CATH GUIDE 5FR LAUNCHER [id number] during setup, a LUGE 0.014 182CM MODERATE SUPPORT during setup, and a RESOLUTE SHRADDHA RX3.0X30MM During Procedure. The total number of attempt(s) was 1. Th e maximum inflation pressure was 16(britt). Following intervention there is a 0 % re sidual stenosis. There was ADILIA Flow 3 before the procedure and ADILIA Flow 3 following the procedure. Procedure Narrative: Access Right radial artery: The puncture site was infiltrated with 2 .0 ml of 1% Lidocaine. Vascular access was obtained using modified seldinger technique and a GLIDESHEATH SL APOORVA 6FR [id number] was advanced into the vessel. Hemostasis/Sheath Status: Hemostasis was successful using mechanical compression (RADIAL TR BAND). Coronary Angiography Left Coronary System: A catheter was positioned into the Vesse l Ostium under fluoroscopic guidance. Contrast injections were performed using hand injection. Angiograms were obtain ed in multiple views. Right Coronary System: A catheter was positioned into the Vesse l Ostium under fluoroscopic guidance. Contrast injections were performed using hand injection. Angiograms were obtain ed in multiple views. Left Heart Cath Ventriculography was performed using 30 cc of contrast at 15 cc/sec and 600 psi. Hemodynamic Impressions General Impressions: Hemodynamic assessm ent demonstrates No systemic hypertension, Left ventricular end diastolic pressure is normal. Hemodynamic Findings Pressures: Baseline: LV pressure 134mm Hg, EDP 16. Baseline: AO pressure 126/68mmHg, mean 92. Hemodynamic Pressures-Phase: Baseline Location : LV Pressure s : 134 mmHg Pressure ed : 16 mmHg HR : 65 bpm Hemodynamic Pressures-Phase: Baseline Location : Ao Pressure s : 126 mmHg Pressure d : 68 mmHg Pressure m : 92 mmHg HR : 63 bpm Acute complication: No complications Contrast: Description Dose Unit HIS No. Reference No. Serial No. Lot No. Omnipaque [id number] 0 ml C34 C34 Ordering Physician: DAHIANA BERNSTEIN DO Scrub: JUANY AYALA CVT CCL Allergy Physician: NIGEL MENDOZA RN CCL Allergy Physician: RICCARDO MG RN Monitor: DONN SEO Welding Rod Coater: LISBETH KINGSTON, RT(R) Welding Rod Coater: NELDA CLARK RT(R) Primary Rural Electrification Engineer: DAHIANA BERNSTEIN DO Diagnostic Physician Signature: Electronically signed by JASON GARCIA DO on 2019 at 04:33 PM Interventional Physician Signature: Electronically signed by JASON GARCIA DO on 2019 at 04:33 PM Measurements: Name Value EF: 60 % Wall Motion: Pre - Pre - Pre - Post - Post - Post - Procedure Note Interface, Inc Results No Pull Forward - 02/16/2020 4:36 PM CDT Patient: GIGI HENDERSON [facility] Exam Date: 02/15/[address] Exam T tesfaye: 05:01 PM-05:15 [place] [address] [facility] Region of Interventional Cardiology Diagnostic Left Heart Catheterization Kitty martinez Cardiac Interventional Report : 1955 Fluoro Time: 7.4 min. Patient Status: Inpatient Age: 64 year(s) Cath Status: Patient Room: [facility] Gender: Male Diagnostic Rural Electrification Engineer: JASON GARCIA DO Groundwater Consultant: JASON GARCIA DO Indication: Angina/CA: myocardial infar ction with ST elevation (STEMI). Interventional Conclusions: Interventional Summary Right posterior descending artery: A suc cessful Drug Eluting Stent was deployed using a RESOLUTE SHRADDHA RX2.37G02LE. Mid left anterior descendin g: A successful Drug Eluting Stent was deployed using a RESOLUTE SHRADDHA RX3.0X30MM. Proximal left anterior descending: A Drug Eluting Stent was deployed using a RESOLUTE SHRADDHA RX3.0X30MM. Procedures Performed: Medication/Infusion/Drip. Art Access - R radial artery. Left Heart Cath With Ventriculogram. Selective Lt Coronary Angiography. Selective Rt Coronary Angio graphy. Drug Eluting Stent Placement. Activated Clotting Time. Additional Drug Eluting Stent Placement. Radial Artery C ompression Device. Fluoro 0.1-60 Minutes. Diagnostic Findings: Coronary Angiography The coronary circulation is right domina nt. Left Main Left main artery: The segment is large. Angiography shows no disease. Left Anterior Descending Left anterior descending artery: The seg ment is large. Proximal left anterior descending: There is a 70 % stenosis. Mid left anterior descending: There is a 90 % gricelda nosis. First diagonal: The segment is large. Angiography shows no disease. Circumflex Circumflex artery: The segment is large. Angiography shows mild atherosclerosis. First obtuse marginal: The segment is large. Angiography shows mild atheroscle rosis. Right Coronary Right coronary artery: The segment is la rge. Angiography shows mild atherosclerosis. Proximal right coronary artery: There is a 30 % stenosis. Right posterio r descending artery: The segment is large. There is a 90 % stenosis. Left Heart Cath Left ventricular function was assessed. Ejection fraction was calculated by a hand injection LV Gram with a value of 60%. Valves Aortic Valve: There is no aortic valve s tenosis. Mitral Valve: The mitral valve exhibits no regurgitation. Interventional Findings: PCI Procedure Data: The syntax score is intermediate. Interventional Details Right posterior descending artery: The i nitial stenosis was 90 %. This was an ACC/AHA Non-High/Non C lesion for intervention. Guidewire crossing was suc cessful. A successful Drug Eluting Stent was depl oyed using a CATH GUIDE 5FR LAUNCHER [id number] during setup, a LUGE 0.014 182CM MODERATE SUPPORT during setup, and a RESOLUTE SHRADDHA RX2.17O81FU During Procedure. The total number of attempt(s) was 1. Th e maximum inflation pressure was 14(britt). There was ADILIA Flow 3 before the procedu re and ADILIA Flow 3 following the procedure. Mid left anterior descending: The initia l stenosis was 90 %. This was an ACC/AHA Non-High/Non C lesion for intervention. Guidewire crossing was successful. A successful Drug Eluting Stent was depl oyed using a CATH GUIDE 5FR LAUNCHER [id number] during setup, a LUGE 0.014 182CM MODERATE SUPPORT during setup, and a RESOLUTE SHRADDHA RX3.0X30MM During Procedure. The total number of attempt(s) was 1. Th e maximum inflation pressure was 14(britt). Following intervention there is a 0 % re sidual stenosis. There was ADILIA Flow 3 before the procedure and ADILIA Flow 3 following the procedure. Proximal left anterior descending: The i nitial stenosis was 70 %. This was an ACC/AHA High/C lesion for intervention. Guidewire crossing was successful. A Drug Eluting Stent was deployed using a CATH GUIDE 5FR LAUNCHER [id number] during setup, a LUGE 0.014 182CM MODERATE SUPPORT during setup, and a RESOLUTE SHRADDHA RX3.0X30MM During Procedure. The total number of attempt(s) was 1. Th e maximum inflation pressure was 16(britt). Following intervention there is a 0 % re sidual stenosis. There was ADILIA Flow 3 before the procedure and ADILIA Flow 3 following the procedure. Procedure Narrative: Access Right radial artery: The puncture site was infiltrated with 2 .0 ml of 1% Lidocaine. Vascular access was obtained using modified seldinger technique and a GLIDESHEATH SL APOORVA 6FR [id number] was advanced into the vessel. Hemostasis/Sheath Status: Hemostasis was successful using mechanical compression (RADIAL TR BAND). Coronary Angiography Left Coronary System: A catheter was positioned into the Vesse l Ostium under fluoroscopic guidance. Contrast injections were performed using hand injection. Angiogra ms were obtained in multiple views. Right Coronary System: A catheter was positioned into the Vesse l Ostium under fluoroscopic guidance. Contrast injections were performed using hand injection. Angiogra ms were obtained in multiple views. Left Heart Cath Ventriculography was performed using 30 cc of contrast at 15 cc/sec and 600 psi. Hemodynamic Impressions General Impressions: Hemodynamic assessm ent demonstrates No systemic hypertension, Left ventricular end diastolic pressure is normal. Hemodynamic Findings Pressures: Baseline: LV pressure 134mmH g, EDP 16. Baseline: AO pressure 126/68mmHg, mean 92. Hemodynamic Pressures-Phase: Baseline Location : LV Pressure s : 134 mmHg Pressure ed : 16 mmHg HR : 65 bpm Hemodynamic Pressures-Phase: Baseline Location : Ao Pressure s : 126 mmHg Pressure d : 68 mmHg Pressure m : 92 mmHg HR : 63 bpm Acute complication: No complicatio ns Contrast: Description Dose Unit HIS No. Reference No. Serial No. Lot No. Omnipaque 125.000 ml C34 C34 Ordering Physician: DAHIANA ARCHIBALD DO Scrub: CHARLIE BROOKS CCL Allergy Physician: NIGEL CAMERON RN CCL Allergy Physician: RICCARDO Dai RN Monitor: DONN SEO Welding Rod Coater: LISBETH MONTGOMERY, RT(R) Welding Rod Coater: NELDA MARTIN, RT(R) Primary Rural Electrification Engineer: DAHIANA ARCHIBALD DO Diagnostic Physician Signature: Interventional Physician Signature: Measurements: Name Value EF: 60 % Wall Motion: Pre - Pre - Pre - Post - Post - Post - Performing Organization Address City/State/Zipcode Phone Number [facility] [place], [place] documented in this encounter Visit Diagnoses Diagnosis Stented coronary artery - Primary Postsurgical percutaneous transluminal c oronary angioplasty status STEMI involving right coronary artery (H CC) documented in this encounter Discharge Diagnoses Not on filedocumented in this encounter Administered Medications Medication Order MAR Action Action Date Dose Rate Site acetaminophen (TYLENOL) tablet 650 mg 650 mg, Oral, Every four hours prn, Starting Thu at 1747, Until Discontinued, mild pain, Post-Procedure (Cath), Pain S elbert 1 - 3, acetaminophen (TYLENOL) tablet 650 mg 650 mg, Oral, Every four hours prn, Starting Thu at 1730, Until Discontinued, mild pain, fever, pain sca le 3 or less, Adult patients: Total dose of acetaminophen from all acetaminophen con taining products should not exceed 4 grams (4000 mg) per day. Pediatric Patients 0 - 3 months: Maximum of 60 mg/kg/24 hours of acetaminophen. Pediatric Patients old er than 3 months: Maximum of 75 mg/kg/24 hours of acetaminophen (Never exceeding 4 grams/day). , aluminum & magnesium hydroxide-simethico ne (MYLANTA,MAALOX) oral suspension 30 mL 30 mL, Oral, Four times a day prn, Starting Thu 0 at 1733, Until Discontinued, indigestion, other (Specify), gas, 30 mL aspirin chewable tablet 81 mg Given 02/17/2020 9:08 AM CDT 81 mg 81 mg, Oral, Daily, First dose on Michelle 02/16/20 at 0900, Until Discontinued, Post-Procedure (Cath) Given 02/16/2020 8:43 AM CDT 81 mg atorvaSTATin (LIPITOR) tablet 40 mg Given 02/17/2020 9:08 AM CDT 40 mg 40 mg, Oral, Daily, First dose on Michelle 02/16/20 at 0900, Until Discontinued Given 02/16/2020 8:43 AM CDT 40 mg clopidogrel (PLAVIX) tablet 600 mg 600 mg, Oral, One time, 1 dose, 02/17/20 at 1800 clopidogrel (PLAVIX) tablet 75 mg 75 mg, Oral, Daily, First dose on Thu02/18/20 at 0900, Until Discontinued haloperidol lactate (HALDOL) injection s olution 2.5 mg 2.5 mg, IV, Every six hours prn, Startin g Thu02/15/20 at 1730, Until Discontinued, other (Specify), nausea/vomiting, 0.5 mL, Use SECOND f or nausea/vomiting. If ineffective and ondansetron used, call physician for a lternative Do not further dilute with 0.9% sodium chloride. If preference is to further dilute for IV administration: first draw up patient-specific dose, t hen dilute to 10ml with dextrose 5% water. Ok to flush with 0.9% Sodium Chlor kacey., hydrALAZINE (APRESOLINE) injection solut ion 10 mg 10 mg, IV, Every six hours prn, Starting Thu02/15/20 at 1727, Until Discontinued, specified parameter, to keep SBP less th an 150 mmHg, 0.5 mL, Repeat in 20 minutes if needed. If not successful after two d oses, contact the interventional cardiology team., lisinopril (PRINIVIL, ZESTRIL) tablet 2. 5 mg Given 02/17/2020 9:08 AM CDT 2.5 mg 2.5 mg, Oral, Daily, First dose on Michelle 02/16/20 at 0900, Until Discontinued Given 02/16/2020 8:43 AM CDT 2.5 mg LORazepam (ATIVAN) 2 mg/mL injection margo ution 0.5 mg 0.5 mg, IV, Every six hours prn, Startin g 02/14/20 at 1733, Until Discontinued, anxiety, 0.25 mL, If preference is to fu rther dilute for IV administration: First draw up patient-specific dose, then dilute with EQUAL VOLUME of 0.9% sodium chloride, nitroglycerin (NITROSTAT) sublingual tab let 0.4 mg 0.4 mg, Sublingual, Every five minutes prn, Starting W ed 02/15/20 at 1727, Until Discontinued, chest pain, At onset of ch est pain, dissolve one tablet under tongue. May repeat every 5 minutes for 3 doses. Do not crush o r chew., ondansetron (ZOFRAN) injection solution 4 mg 4 mg, IV, Every four hours prn, Starting 02/15/20 at 1730, Until Discontinued, nausea, vomiting, 2 mL, Use FIRST. If in effective after 15 minutes use haloperidol if ordered for nausea/vomiting If preference is to fur ther dilute for IV administration: First draw up patient-sp ecific dose, then dilute to 10 mL with 0.9% sodium chloride., senna-docusate sodium (SENOKOT-S;PERICOL LUIS) tablet 1 tablet 1 tablet, Oral, Two times a day prn, Starting Wed 02/14 at 1733, Until Discontinued, constipation, Use FIRST fo r constipation unless patient cannot take oral medications, sodium chloride 0.9% flush (adult) 10 mL Given 02/17/2020 9:09 AM CDT 10 mL 10 mL, IV, Two times a day and prn, First dose on 02/15/20 at 2100, Until Discontinued, 10 mL, Flush IV line as scheduled and as often as necessary before and after meds., Given 02/16/2020 9:40 PM CDT 10 mL Given 02/15/2020 9:52 PM CDT 10 mL temazepam (RESTORIL) capsule 15 mg 15 mg, Oral, Bedtime prn, Starting 02/15/20 at 1733 , Until Discontinued, insomnia thyroid tablet 60 mg Given 02/17/2020 9:09 AM CDT 60 mg 60 mg, Oral, DAILY, First dose on Michelle 02/16/20 at 1215, Until Discontinued Given 02/16/2020 3:10 PM CDT 60 mg Medication Order MAR Action Action Date Dose Rate Site fentaNYL 100 mcg/2 mL Given 02/15/2020 4:54 PM CDT 25 mcg preservative free injection solution 12.5-300 mcg 12.5-300 mcg, IV, Administer in Cardiac Rib Bender, 1 dose, Thu02/15/20 at 1650, 6 mL, Under the direction of the provider in CCL. Do not give on the floor. For cardiac catheterization sedation under direction provider privileged to perform sedation., iohexol (OMNIPAQUE) 350 mg/mL solution 125 Given 02/15/2020 5:22 PM CDT 125 mL mL 125 mL, Intra-arterial, One time, 1 dose, Thu02/15/20 at 1725, 150 mL lidocaine PF (XYLOCAINE-MPF) 1 % preservative Given 4:55 PM CDT 2 mL free injection solution 0-40 mL 0-40 mL, Subcutaneous, Administer in Cardiac Rib Bender, 1 dose, Thu02/15/20 at 1650, 40 mL, Given by provider in CCL. Do not give on the floor., midazolam (VERSED) injection solution 0.5-10 Given 0 4:54 PM CDT 1 mg mg 0.5-10 mg, IV, Administer in Cardiac Rib Bender, 1 dose, Thu02/15/20 at 1650, 10 mL, For cardiac catheterization sedation under direction provider privileged to perform sedation. Do not give on the floor., ticagrelor (BRILINTA) tablet 90 mg Given 02/17/2020 9:08 AM CDT 90 mg 90 mg, Oral, Two times a day, 730 doses, First dose on Thu02/15/20 at 2100, Last dose on Thu02/14/21 at 0900, Post-Procedure (Cath), If medication is crushed, must be mixed with water for administration., Given 02/16/2020 9:40 PM CDT 90 mg Given 02/16/2020 8:43 AM CDT 90 mg verapamil-hEParin in normal saline (radial Given 02/15/2020 4:5 7 PM CDT cocktail) Intra-arterial, Administer in Cardiac Rib Bender, 1 dose, Thu02/15/20 at 1650, 10 mL, Under the direction of the provider in CCL. Do not give on the floor., documented in this encounter
== END 2020-02-15 15:50 | disposition short-term general hospital (02) ==
LOC: VM.ED 15:11
DX: I21.19 ST elevation (STEMI) myocardial infarction involving other coronary artery of inferior wall (principal)
CPT/HCPCS: 80053; 82550; 84484; 85025; 85610; 85730; 93010; 96374; 99284; 99285-25; A9270-GY; J1644